=== PATIENT | female | born 1935 | race African-American/Black ===

== ENCOUNTER 2023-11-30 12:02 | Inpatient (IN) | payer MEDICARE, BC ==
[~2023-11-30] VITALS: Ht 160 cm; Wt 67.8 kg
[2023-11-30] MEDS: ACETAMINOPHEN 325MG TABLET PO ONE (12:25)
[2023-11-30 13:02] LABS: HEMATOCRIT. 29.1 % (36.0-48.0); HEMOGLOBIN. 9.1 g/dL (12.0-16.0); MEAN CORPUSCULAR HEMOGLOBIN 21.2 pg (28.0-32.0); MEAN CORPUSCULAR HGB CONC 31.3 g/dL (31.0-37.0); MEAN CORPUSCULAR VOLUME 67.9 fL (81.0-99.0); MEAN PLATELET VOLUME 7.7 fl (7.4-10.4); PLATELET 562 x1000/uL (130-400); RED BLOOD CELL COUNT 4.29 mill/uL (4.2-5.4); WHITE BLOOD COUNT 12.9 x1000/uL (4.5-11.0)
[2023-11-30 13:04] LABS: DIFFERENTIAL COMMENT 1
[2023-11-30 13:12] LABS: CHLORIDE 96 mEq/L (98-107); SODIUM 132 mEq/L (136-145)
[2023-11-30 13:13] LABS: CARBON DIOXIDE 31 mEq/L (21-32)
[2023-11-30 13:18] LABS: CREATININE 0.5 mg/dL (0.6-1.0)
[2023-11-30 13:19] LABS: GLUCOSE 110 mg/dL (70-105); UREA NITROGEN BLOOD 7 mg/dL (9-23)
[2023-11-30 13:35] LABS: ETHANOL BLOOD < 10 mg/dL (<10)
[2023-11-30 13:36] LABS: POTASSIUM 2.4 mEq/L (3.5-5.1)
[2023-11-30 13:37] LABS: TROPONIN I HIGH SENSITIVITY 123 ng/L (3.0-34)
[2023-11-30 13:49] LABS: PLATELET ESTIMATE INCREASED
[2023-11-30 13:50] LABS: ANISOCYTOSIS 3+
[2023-11-30] MEDS: POTASSIUM CHLORIDE 20MEQ TABLET SR PO NR ×2 (14:37→21:45)
[2023-11-30] MEDS: SODIUM CHLORIDE 0.9% 1,000 ML IV ONE (14:37)
[2023-11-30] MEDS: KCL 10MEQ/50ML PREMIX 50 ML IV NR (15:22)
[2023-11-30] MEDS: AZITHROMYCIN 500MG/250ML 250 ML IV NR (15:30)
[2023-11-30] MEDS ORDERED: GUAIFENESIN 200MG/10ML SUGAR FREE UDC PO PRN (17:00)
[2023-11-30] MEDS ORDERED: ACETAMINOPHEN 325MG TABLET PO PRN (17:00)
[2023-11-30] MEDS ORDERED: IPRATROPIUM/ALBUTEROL 0.5-3(2.5)MG/3ML NEB HHN PRN (17:00)
[2023-11-30] MEDS ORDERED: CLONIDINE 0.1MG TABLET PO PRN (17:00)
[2023-11-30] MEDS ORDERED: ONDANSETRON HCL 4MG/2ML INJ IV PRN (17:00)
[2023-11-30] MEDS ORDERED: HYDROMORPHONE HCL/PF 1MG/ML INJ IV NR (17:30)
[2023-11-30] MEDS: MORPHINE SULFATE 2 MG/ML INJ (NOT FOR IM USE) IV NR (17:49)
[2023-11-30] MEDS: CEFTRIAXONE 1GM/50ML 50 ML IV NR (18:42)
[2023-11-30] MEDS: HYDROCODONE/ACETAMINOPHEN 10/325MG TABLET PO PRN (19:18)
[2023-11-30] MEDS: MAGNESIUM 2 G PREMIX 50 ML IV NR (19:22)
[2023-11-30 20:06] LABS: POTASSIUM 2.9 mEq/L (3.5-5.1)
[2023-11-30] MEDS ORDERED: FAMOTIDINE 20MG TABLET PO SCH (21:00)
[2023-11-30] MEDS ORDERED: NALOXONE HCL 0.4MG/ML VIAL IV PRN (21:45)
[2023-11-30] MEDS: HYDRALAZINE HCL 50MG TABLET PO SCH (22:00)
[2023-12-01] MEDS: FAMOTIDINE 20MG TABLET PO SCH (00:27)
[2023-12-01 01:07] LABS: CREATINE KINASE MB FRACTION 4.8 ng/mL (0.5-3.6)
[2023-12-01 08:00] VITALS: BP 147/77; PULSE 66; PULSE 86; RESP 18; RESP 20; TEMP 36.6404; TEMP 37.2252; O2SAT 100
[2023-12-01] MEDS: DOCUSATE SODIUM 100MG CAPSULE PO PRN (09:12)
[2023-12-01] MEDS: FUROSEMIDE 40MG TABLET PO SCH (09:12)
[2023-12-01 09:56] LABS: CHLORIDE 103 mEq/L (98-107); POTASSIUM 3.8 mEq/L (3.5-5.1); SODIUM 138 mEq/L (136-145)
[2023-12-01 09:57] LABS: CARBON DIOXIDE 26 mEq/L (21-32)
[2023-12-01 10:00] LABS: CREATINE KINASE MB FRACTION 3.7 ng/mL (0.5-3.6)
[2023-12-01 10:02] LABS: CREATININE 0.5 mg/dL (0.6-1.0); GLUCOSE 76 mg/dL (70-105); IRON 18 ug/dL (50-170); TRIGLYCERIDE 130 mg/dL (0-150)
[2023-12-01 10:03] LABS: ALBUMIN 3.1 g/dL (3.2-4.8); BILIRUBIN TOTAL 0.3 mg/dL (0.1-1.0); LDL CHOLESTEROL 114 mg/dL (5-100); UREA NITROGEN BLOOD 7 mg/dL (9-23)
[2023-12-01 10:04] LABS: ALANINE AMINOTRANSFERASE < 7 IU/L (10-49); ASPARTATE AMINOTRANSFERASE 19 IU/L (<34); BILIRUBIN DIRECT 0.1 mg/dL (<=3.0); CHOLESTEROL 193 mg/dL (<200); HDL CHOLESTEROL 49 mg/dL (>65); T4 FREE 1.47 ng/dL (0.89-1.76); THYROID STIMULATING HORMONE 1.96 uIU/mL (0.55-4.78)
[2023-12-01 10:05] LABS: PHOSPHORUS 2.2 mg/dL (2.5-4.9); PROTEIN TOTAL 5.8 g/dL (6.0-8.3); TOTAL IRON BINDING CAPACITY 294 ug/dl (250-425)
[2023-12-01 10:39] LABS: HEMATOCRIT. 30.9 % (36.0-48.0); HEMOGLOBIN. 9.4 g/dL (12.0-16.0); MEAN CORPUSCULAR HEMOGLOBIN 21.1 pg (28.0-32.0); MEAN CORPUSCULAR HGB CONC 30.3 g/dL (31.0-37.0); MEAN CORPUSCULAR VOLUME 69.8 fL (81.0-99.0); PLATELET 558 x1000/uL (130-400); RED BLOOD CELL COUNT 4.43 mill/uL (4.2-5.4); RED CELL DISTRIBUTION WIDTH 21.5 % (11.6-14.6); WHITE BLOOD COUNT 17.5 x1000/uL (4.5-11.0)
[2023-12-01 10:50] LABS: DIFFERENTIAL COMMENT 1
[2023-12-01 12:30] VITALS: BP 141/63; PULSE 77; RESP 18; TEMP 36.44736; O2SAT 99
[2023-12-01 12:36] LABS: VITAMIN B12 SERUM > 2000 pg/mL (211-911)
[2023-12-01] MEDS ORDERED: AMLO5TAB88 MT (12:47)
[2023-12-01] MEDS ORDERED: GABA-532 MT (12:47)
[2023-12-01] MEDS ORDERED: HYDR50TA MT (12:47)
[2023-12-01] MEDS ORDERED: LISI40TA13 MT (12:47)
[2023-12-01] MEDS ORDERED: FURO40TA5 MT (12:47)
[2023-12-01] MEDS ORDERED: LABE200T9 MT (12:47)
[2023-12-01] MEDS ORDERED: HYDR100T11 MT (12:47)
[2023-12-01] MEDS ORDERED: CARV40CP7 MT (12:47)
[2023-12-01 16:18] VITALS: BP 122/61; PULSE 79; RESP 20; TEMP 36.61404; O2SAT 100
[2023-12-01 17:04] LABS: ANISOCYTOSIS 2+; HYPOCHROMASIA 2+; MICROCYTOSIS 3+; PLATELET ESTIMATE INCREASED
[2023-12-01] MEDS: MORPHINE SULFATE 2 MG/ML INJ (NOT FOR IM USE) IV PRN (18:33)
[2023-12-01 19:50] LABS: HEPATITIS B SURFACE ANTIGEN NEGATIVE (Negative)
[2023-12-01 20:00] VITALS: BP 151/67; PULSE 99; RESP 18; TEMP 37.28076; O2SAT 96
[2023-12-01 20:11] LABS: HEPATITIS C AB NON REACTIVE (Neg) (Negative)
[2023-12-01] MEDS: LORAZEPAM 0.5MG TABLET PO PRN (23:10)
[2023-12-02] VITALS: BP 133/73; PULSE 97; RESP 18; TEMP 36.72516; O2SAT 97
[2023-12-02 04:00] VITALS: BP_SYST 158; BP_SYST 166; BP_DIAS 66; BP_DIAS 78; PULSE 103; PULSE 99; RESP 20; TEMP 37.61412; O2SAT 98
[2023-12-02 06:54] LABS: HEMATOCRIT 27.1 % (36.0-48.0); HEMOGLOBIN 8.3 g/dL (12.0-16.0); MEAN CORPUSCULAR HEMOGLOBIN 21.1 pg (28.0-32.0); MEAN CORPUSCULAR HGB CONC 30.5 g/dL (31.0-37.0); MEAN CORPUSCULAR VOLUME 69.3 fL (81.0-99.0); PLATELET 413 x1000/uL (130-400); RED BLOOD CELL COUNT 3.92 mill/uL (4.2-5.4); RED CELL DISTRIBUTION WIDTH 21.2 % (11.6-14.6); WHITE BLOOD COUNT 13.7 x1000/uL (4.5-11.0)
[2023-12-02 07:00] LABS: CARBON DIOXIDE 28 mEq/L (21-32); CHLORIDE 101 mEq/L (98-107); POTASSIUM 3.6 mEq/L (3.5-5.1); SODIUM 136 mEq/L (136-145)
[2023-12-02 07:06] LABS: CREATININE 0.7 mg/dL (0.6-1.0); GLUCOSE 86 mg/dL (70-105); UREA NITROGEN BLOOD 9 mg/dL (9-23)
[2023-12-02 08:00] VITALS: BP 135/52; PULSE 80; RESP 20; TEMP 36.3918; O2SAT 99
[2023-12-02 12:00] VITALS: BP 118/55; PULSE 87; RESP 18; TEMP 36.33624; O2SAT 98
[2023-12-02 16:00] VITALS: BP 121/54; PULSE 93; RESP 19; TEMP 36.61404; O2SAT 98
[2023-12-02 20:00] VITALS: BP 133/71; PULSE 105; RESP 18; TEMP 39.11424; O2SAT 100
[2023-12-02] MEDS: ACETAMINOPHEN 325MG TABLET PO PRN (21:22)
[2023-12-03] VITALS: BP 146/61; PULSE 89; RESP 20; TEMP 36.3918; O2SAT 99
[2023-12-03 04:00] VITALS: BP 133/52; PULSE 72; RESP 20; TEMP 36.55848; O2SAT 99
[2023-12-03 06:53] LABS: CARBON DIOXIDE 29 mEq/L (21-32); CHLORIDE 102 mEq/L (98-107); POTASSIUM 3.6 mEq/L (3.5-5.1); SODIUM 136 mEq/L (136-145)
[2023-12-03 06:54] LABS: CALCIUM 9.3 mg/dL (8.7-10.4)
[2023-12-03 06:59] LABS: HEMATOCRIT 25.8 % (36.0-48.0); HEMOGLOBIN 7.7 g/dL (12.0-16.0); MEAN CORPUSCULAR HEMOGLOBIN 20.8 pg (28.0-32.0); MEAN CORPUSCULAR HGB CONC 29.8 g/dL (31.0-37.0); PLATELET 398 x1000/uL (130-400); RED BLOOD CELL COUNT 3.69 mill/uL (4.2-5.4); WHITE BLOOD COUNT 13.9 x1000/uL (4.5-11.0)
[2023-12-03 06:59] LABS: CREATININE 0.6 mg/dL (0.6-1.0); GLUCOSE 100 mg/dL (70-105); UREA NITROGEN BLOOD 9 mg/dL (9-23)
[2023-12-03 08:00] VITALS: BP 168/69; PULSE 84; RESP 19; TEMP 36.3918; O2SAT 98
[2023-12-03] MEDS: FAMOTIDINE 20MG TABLET PO SCH (08:32)
[2023-12-03 12:00] VITALS: BP 146/66; PULSE 78; RESP 19; TEMP 35.89176; O2SAT 99
[2023-12-03 16:00] VITALS: BP 150/63; PULSE 94; RESP 17; TEMP 36.50292; O2SAT 98
[2023-12-03 20:00] VITALS: BP 143/77; PULSE 96; RESP 19; TEMP 35.89176; O2SAT 99
[2023-12-04] VITALS: BP 138/62; PULSE 102; RESP 18; TEMP 37.00296; O2SAT 98
[2023-12-04 04:00] VITALS: BP 130/54; PULSE 74; RESP 18; TEMP 36.61404; O2SAT 98
[2023-12-04 08:00] VITALS: BP 125/45; PULSE 85; RESP 18; TEMP 36.22512; O2SAT 100
[2023-12-04 10:32] LABS: CALCIUM 9.4 mg/dL (8.7-10.4); CHLORIDE 100 mEq/L (98-107); POTASSIUM 3.6 mEq/L (3.5-5.1); SODIUM 136 mEq/L (136-145)
[2023-12-04 10:33] LABS: CARBON DIOXIDE 27 mEq/L (21-32)
[2023-12-04 10:39] LABS: CREATININE 0.7 mg/dL (0.6-1.0); GLUCOSE 138 mg/dL (70-105); UREA NITROGEN BLOOD 10 mg/dL (9-23)
[2023-12-04 10:40] LABS: MEAN CORPUSCULAR HEMOGLOBIN 20.8 pg (28.0-32.0); MEAN CORPUSCULAR HGB CONC 29.1 g/dL (31.0-37.0); MEAN CORPUSCULAR VOLUME 71.4 fL (81.0-99.0); PLATELET 448 x1000/uL (130-400); RED BLOOD CELL COUNT 4.29 mill/uL (4.2-5.4); RED CELL DISTRIBUTION WIDTH 21.6 % (11.6-14.6); WHITE BLOOD COUNT 16.1 x1000/uL (4.5-11.0)
[2023-12-04 10:45] LABS: HEMATOCRIT 30.6 % (36.0-48.0); HEMOGLOBIN 8.9 g/dL (12.0-16.0)
[2023-12-04 12:00] VITALS: BP 135/75; PULSE 91; RESP 18; TEMP 36.114; O2SAT 100
[2023-12-04 16:00] VITALS: BP 133/65; PULSE 86; RESP 18; TEMP 36.33624; O2SAT 100
[2023-12-04 20:00] VITALS: BP 137/66; PULSE 100; RESP 18; TEMP 35.94732; O2SAT 100
[2023-12-05] VITALS: BP 132/66; PULSE 102; RESP 18; TEMP 36.114; O2SAT 98
[2023-12-05 08:00] VITALS: BP 133/52; PULSE 78; RESP 18; TEMP 36.83628; O2SAT 100
[2023-12-05 12:00] VITALS: BP 116/43; PULSE 80; RESP 18; TEMP 36.6696; O2SAT 100
[2023-12-05] MEDS: MORPHINE SULFATE 2 MG/ML INJ (NOT FOR IM USE) IV PRN (12:05)
[2023-12-05 16:00] VITALS: BP 133/58; PULSE 89; RESP 18; TEMP 36.6696; O2SAT 100
[2023-12-05 20:00] VITALS: BP 154/66; PULSE 89; RESP 17; TEMP 37.28076; O2SAT 100
[2023-12-06] VITALS: BP 145/70; PULSE 88; RESP 18; TEMP 36.55848; O2SAT 98
[2023-12-06 04:00] VITALS: BP 146/60; PULSE 87; RESP 18; TEMP 37.11408; O2SAT 99
[2023-12-06 08:00] VITALS: BP 131/54; PULSE 78; RESP 18; TEMP 35.8362; O2SAT 97
[2023-12-06] MEDS: HYDROCODONE/ACETAMINOPHEN 10/325MG TABLET PO PRN (11:51)
[2023-12-06 12:00] VITALS: BP 147/58; PULSE 80; RESP 18; TEMP 36.00288; O2SAT 97
[2023-12-06 16:00] VITALS: BP 144/66; PULSE 77; RESP 18; TEMP 35.89176; O2SAT 97
[2023-12-06 20:00] VITALS: BP 118/67; PULSE 83; RESP 18; TEMP 35.78064; O2SAT 100
[2023-12-07] VITALS: BP 122/72; PULSE 88; RESP 18; TEMP 35.78064; O2SAT 98
[2023-12-07 04:00] VITALS: BP 158/65; PULSE 63; RESP 18; TEMP 36.78072; O2SAT 99
[2023-12-07 08:00] VITALS: BP 157/75; PULSE 96; RESP 17; TEMP 36.61404; O2SAT 99
[2023-12-07 12:00] VITALS: BP 111/52; PULSE 80; RESP 18; TEMP 36.83628; O2SAT 98
[2023-12-07 20:00] VITALS: BP 123/60; PULSE 105; RESP 20; TEMP 36.50292; O2SAT 98
[2023-12-08] VITALS: BP 136/80; PULSE 102; RESP 20; TEMP 36.22512; O2SAT 96
[2023-12-08 04:00] VITALS: BP 154/72; PULSE 89; RESP 20; TEMP 36.33624; O2SAT 99
[2023-12-08 08:00] VITALS: BP 123/46; PULSE 99; RESP 20; TEMP 36.50292; O2SAT 97
[2023-12-08] MEDS: AMLODIPINE 5MG TABLET PO SCH (09:24)
[2023-12-08] MEDS: LISINOPRIL 40MG TABLET PO SCH (09:25)
[2023-12-08 12:00] VITALS: BP 152/66; PULSE 102; RESP 18; TEMP 36.3918; O2SAT 99
[2023-12-08 16:00] VITALS: BP 129/55; PULSE 96; RESP 19; TEMP 36.50292; O2SAT 98
[2023-12-08 20:00] VITALS: BP 159/62; PULSE 97; RESP 19; TEMP 36.72516; O2SAT 97
[2023-12-09] VITALS: BP 148/72; PULSE 89; RESP 19; TEMP 36.61404; O2SAT 96
[2023-12-09 04:00] VITALS: BP 150/68; PULSE 92; RESP 19; TEMP 37.16964; O2SAT 97
[2023-12-09 08:00] VITALS: BP 159/69; PULSE 81; RESP 18; TEMP 36.6696; O2SAT 99
[2023-12-09 12:00] VITALS: BP 147/63; PULSE 88; RESP 20; TEMP 36.55848; O2SAT 98
[2023-12-09 16:00] VITALS: BP 134/68; PULSE 87; RESP 19; TEMP 37.00296; O2SAT 97
[2023-12-09] MEDS: HYDROCHLOROTHIAZIDE 25MG TABLET PO SCH (17:00)
[2023-12-09] MEDS ORDERED: CARV80CP8 PO (17:26)
[2023-12-09] MEDS ORDERED: HYDR100T31 PO (17:26)
[2023-12-09 20:00] VITALS: BP 147/67; PULSE 90; RESP 20; TEMP 36.16956; O2SAT 97
[2023-12-09] MEDS: LABETALOL HCL 100MG TABLET PO SCH (22:30)
[2023-12-10] VITALS: BP 149/62; PULSE 81; RESP 20; TEMP 36.114; O2SAT 98
[2023-12-10 04:00] VITALS: BP 144/55; PULSE 62; RESP 20; TEMP 36.22512; O2SAT 96
[2023-12-10 08:00] VITALS: BP 130/97; PULSE 72; RESP 18; TEMP 36.50292; O2SAT 96
[2023-12-10 13:02] VITALS: BP 130/97; PULSE 72; TEMP 97.7; O2SAT 96
[2023-12-10 19:57] VITALS: BP 109/50; PULSE 80; RESP 20; TEMP 36.72516; O2SAT 97
[2023-12-11] VITALS: BP 109/54; PULSE 70; RESP 19; TEMP 36.89184; O2SAT 99
[2023-12-11 04:00] VITALS: BP 122/48; PULSE 82; RESP 20; TEMP 36.6696; TEMP 36.66960; O2SAT 100
[2023-12-11 06:01] VITALS: BP 122/48; RESP 20
[2023-12-11 09:00] VITALS: PULSE 72
[2023-12-11] MEDS: LABETALOL HCL 100MG TABLET PO SCH (09:00)
[2023-12-11] MEDS: HYDRALAZINE HCL 50MG TABLET PO SCH (14:00)
== END 2023-12-11 17:39 | disposition hospice, home (50) | DRG 947 ==
LOC: ER 12:02 → 5WST 15:24 → EDBEDREQTM 15:44 → EDBEDREQ 15:44 → 7WST 12-01 08:13 → 6EST 12-02 12:42
PROVIDERS: ADMIT Hospitalist; ATTEND Hospitalist
DX: G89.3 Neoplasm related pain (acute) (chronic) (principal); L89.153 Pressure ulcer of sacral region, stage 3; C79.51 Secondary malignant neoplasm of bone; C79.31 Secondary malignant neoplasm of brain; S72.8X1 Other fracture of right femur; D50.9 Iron deficiency anemia, unspecified; E78.5 Hyperlipidemia, unspecified; E83.42 Hypomagnesemia; E87.6 Hypokalemia; I11.0 Hypertensive heart disease with heart failure; X58.XXXD Exposure to other specified factors, subsequent encounter; J01.90 Acute sinusitis, unspecified; I50.9 Heart failure, unspecified; D75.839 Thrombocytosis, unspecified; Z66 Do not resuscitate; Z92.21 Personal history of antineoplastic chemotherapy; Z92.3 Personal history of irradiation; Z88.2 Allergy status to sulfonamides; Z79.899 Other long term (current) drug therapy; Z74.01 Bed confinement status
CPT/HCPCS: 36415; 71045; 72170; 73552; 80048; 80061; 80076; 80320; 82550; 82553; 82607; 82746; 83036; 83540; 83550; 83605; 83735; 83880; 84100; 84132; 84439; 84443; 84484; 85025; 85027; 86705; 87340; 87426; 93005; 93970; 97162; 97166; 99291; J0456; J0696; J2270; J3475; J3480; J7030; G0480